=== PATIENT | female | born 1935 | race Caucasian/White ===

== ENCOUNTER 2017-08-14 11:22 | Inpatient (IN) | payer MEDICARE, BC ==
[2017-08-14] VITALS (12 sets, daily range): BP systolic 104–150; BP diastolic 39–90
[~2017-08-14] VITALS: Ht 167.6 cm; Wt 108.9 kg
--- NOTE | 2017-08-14 11:45 | NUR ---
IV ACCESS STARTED. BLOOD DRAWN FOR LABS.
--- NOTE | 2017-08-14 11:45 | NUR ---
BIB RA, FOUND AT HOME WEAK AND SOB. NOTED LETHARGIC. NONREBREATHER MASK UPHOLSTERER HELPER. IV ACCESS NOTED INFILTRATED UPHOLSTERER HELPER. 102.4 RECTAL TEMP. SEEN BY MD FOR EVAL. SAFETY AND COMFORT MEASURES PROVIDED. WILL MONITOR.
[2017-08-14 11:50] LABS: BASOPHILS % (AUTO) 0.4 % (0.0-2.0); HEMATOCRIT 37 % (33-45); HEMOGLOBIN 11.5 g/dL (11.5-14.8); LYMPHOCYTES # (AUTO) 0.8 /CMM (0.8-4.8); LYMPHOCYTES % (AUTO) 11.5 % (20.0-44.0); MEAN CORPUSCULAR HEMOGLOBIN 28 PG (26.0-33.0); MEAN CORPUSCULAR HGB CONC 31 g/dl (31.0-36.0); MEAN CORPUSCULAR VOLUME 90 fL (82-100); MONOCYTES # (AUTO) 0.5 /CMM (0.1-1.30); MONOCYTES % (AUTO) 8.2 % (2.0-12.0); NEUTROPHILS # (AUTO) 5.3 /CMM (1.8-8.9); NEUTROPHILS % (AUTO) 79.9 % (43.0-81.0); PLATELET COUNT (AUTO) 197 /CMM (150-450); RDW COEFFICIENT OF VARIATION 24.4 (11.5-15.0); RED BLOOD CELL COUNT(AUTO) 4.16 MIL/uL (4.0-5.2); WHITE BLOOD COUNT (AUTO) 6.6 K/uL (4.3-11.0)
--- NOTE | 2017-08-14 11:52 | NUR ---
NORRIS AT BS.
[2017-08-14 11:59] LABS: CALCIUM, SERUM 8.8 mg/dL (8.5-10.1); CARBON DIOXIDE 26 mmol/L (21-32); CHLORIDE 111 mmol/L (98-107); CREATININE 2.3 mg/dL (0.6-1.3); GLUCOSE 177 mg/dL (74-106); POTASSIUM 4.9 mmol/L (3.5-5.1); SODIUM SERUM 146 mmol/L (136-145); UREA NITROGEN, BLOOD 43 mg/dL (7-18)
[2017-08-14 12:02] LABS: INR 1.14 (0.87-1.13); PROTHROMBIN TIME 11.9 SECS (9.5-12.7)
[2017-08-14 12:05] LABS: ALANINE AMINOTRANSFERASE 43 U/L (12-78); ALBUMIN 3.1 g/dL (3.4-5.0); ALKALINE PHOSPHATASE 73 U/L (46-116); ASPARTATE AMINOTRANSFERASE 50 U/L (15-37); BILIRUBIN,DIRECT 0.3 mg/dL (0.0-0.2); BILIRUBIN,TOTAL 0.8 mg/dL (0.2-1.0); TOTAL PROTEIN, SERUM 7.3 g/dL (6.4-8.2)
[2017-08-14 12:08] LABS: TROPONIN I 1.217 ng/mL (0.00-0.056)
[2017-08-14 12:20] LABS: APPEARANCE,URINE Cloudy (CLEAR); BILIRUBIN,URINE SMALL (NEGATIVE); BLOOD, URINE Trace-intact Ery/uL (NEGATIVE); COLOR,URINE Yellow (YELLOW); KETONES,URINE Negative (NEGATIVE); LEUKOCYTE ESTERASE ,URINE Trace (NEGATIVE); NITRITE, URINE Negative (NEGATIVE); PROTEIN,URINE >=300 mg/dl (NEGATIVE); UGLUCOSE Negative (NEGATIVE)
[2017-08-14 12:26] LABS: BACTERIA,URINE Many /HPF (None Seen)
[2017-08-14 12:27] LABS: SQUAMOUS EPITHELIAL CELL,UR Few /HPF (None Seen)
[2017-08-14] MEDS ORDERED: ASPIRIN 325 MG TABLET PO ONE (12:30)
[2017-08-14] MEDS ORDERED: EZET10TA PO (12:37)
[2017-08-14] MEDS ORDERED: ASPIRIN 325 MG TABLET ONE (12:37)
[2017-08-14] MEDS ORDERED: PRED1TAB PO (12:37)
[2017-08-14] MEDS ORDERED: HYDR25TA4 PO (12:37)
[2017-08-14] MEDS ORDERED: LINA5TAB PO (12:37)
[2017-08-14] MEDS ORDERED: SIMV40TA5 PO (12:37)
[2017-08-14] MEDS ORDERED: LOSA25TA13 PO (12:37)
[2017-08-14] MEDS ORDERED: METO25TA3 PO (12:37)
[2017-08-14] MEDS ORDERED: PANT40TA2 PO (12:37)
[2017-08-14] MEDS ORDERED: INSU10VI4 SQ (12:40)
[2017-08-14] MEDS ORDERED: HYDR-4075 PO (12:40)
[2017-08-14] MEDS ORDERED: BLOO-668 IN (12:41)
[2017-08-14] MEDS ORDERED: PIPERACILLIN /TAZOBACTAM 3.375 G in IV D5W 50 ML IV ONE (13:00)
--- NOTE | 2017-08-14 13:51 | NUR ---
PT'S SISTER- CHARLEE ZAPATA CDELLPHONE , HOME .
[2017-08-14] MEDS ORDERED: FURO-144 PO (13:52)
[2017-08-14] MEDS ORDERED: ETHA25TA4 PO (13:52)
[2017-08-14] MEDS ORDERED: IV NS 0.9% 1,000 ML IV PRN (13:57)
[2017-08-14] MEDS ORDERED: MAGNESIUM HYDROXIDE 30 ML UDC PO PRN (14:00)
[2017-08-14] MEDS ORDERED: ONDANSETRON HCL/PF 4 MG/2 ML VIAL IVP PRN (14:00)
[2017-08-14] MEDS ORDERED: HYDROCODONE/APAP 10/325MG 1 EA TABLET PO PRN (14:00)
[2017-08-14] MEDS ORDERED: MAG HYDROX/AL HYDROX/SIMETH 30 ML UDC PO PRN (14:00)
[2017-08-14] MEDS ORDERED: ACETAMINOPHEN 650 MG/SUPP.RECT RC ONE (14:00)
[2017-08-14] MEDS ORDERED: TEMAZEPAM 15 MG CAPSULE PO PRN (14:00)
[2017-08-14] MEDS ORDERED: HYDROCODONE/APAP 5/325MG 1 EACH TABLET PO PRN (14:00)
[2017-08-14] MEDS ORDERED: ACETAMINOPHEN 325 MG TABLET PO PRN (14:00)
[2017-08-14] MEDS ORDERED: CLON0.1T PO (14:01)
--- NOTE | 2017-08-14 14:14 | NUR ---
REPORT GIVEN TO ARJUN ENCARNACION FOR 1CU ROOM 257.
--- NOTE | 2017-08-14 14:14 | NUR ---
SECOND IV ACCESS STARTED PER ICU REQUEST.
--- NOTE | 2017-08-14 14:35 | NUR ---
ICU/RN PT ADMITTED FROM ER.ON SIMPLE MASK 6L.SAT O2-92%.V/S STABLE,AFEBRILE.NO PAIN REPORTED AT THIS TIME.PT HAS PERIFERAL IV -HL.REFUSED TO INSERT F/C OR PUT DIAPER ON. PT IS OBESE.HAS MULTIPLY BRUISES,REDNESS ,RASHES AND EXCORIATIONS ALL OVER THE BODY,DUE TO AUTOIMMUNE SKIN DISORDER-BULLOUS PEMPHIGOID.REDNESS ON ELVIA AREA NOTED.CONTINUE MONITORING.
--- NOTE | 2017-08-14 15:00 | NUR ---
ICU/RN PT PLACED ON N/C .UNABLE TO TOLERATE,PLACED BACK ON SIMPLE MASK.
[2017-08-14] MEDS ORDERED: DEXTROSE 50%-WATER 50 ML DISP.SYRIN IV PRN ×2 (15:30→16:00)
[2017-08-14] MEDS ORDERED: FUROSEMIDE 40 MG/4 ML VIAL IV ONE (15:30)
[2017-08-14] MEDS ORDERED: INSULIN REGULAR, HUMAN 100 UNIT/ML 3 ML VIAL SQ PRN (16:00)
[2017-08-14] MEDS ORDERED: *INSULIN REGULAR(HUMULIN R)HUM 100 UNIT/ML VIAL SQ PRN (16:00)
[2017-08-14] MEDS: BLOOD SUGAR DIAGNOSTIC 1 EACH STRIP VI SCH ×4 (16:25→22:00)
[2017-08-14] MEDS: PIPERACILLIN /TAZOBACTAM 2.25 G in IV D5W 50 ML IV SCH (17:03)
--- NOTE | 2017-08-14 17:15 | NUR ---
ICU/RN DUE MEDS ARE GIVEN ORDERED.BS-139.PT IS ON THE MASK ,SAT O2-99%.VS STABLE,AFEBRILE.NO PAIN REPORTED TO THIS TIME.
--- NOTE | 2017-08-14 19:45 | NUR ---
manager agricultural notes received pts and report from sami johnston , pts in bed awake alert and responsive , no sob no distress noted , on tele sr -83 on 6liters via mask sating 96 %, v/s stable afebrile , all needs attended too ,call light within reach , all due meds given as ordered , pts on l ua midline r hand G20 , r wrist g# 20 all intact and patent . will continue to monitor pts.
[2017-08-14] MEDS: HEPARIN SODIUM, PORCINE 5000 UNITS/1 ML VIAL SQ SCH (21:13)
[2017-08-14] MEDS: *INSULIN REGULAR(HUMULIN R)HUM 100 UNIT/ML VIAL SQ PRN (21:18)
--- NOTE | 2017-08-14 21:31 | NUR ---
auricular detoxification specialist notes blood sugar for 10pm is 99mg/dl =no coverage given per sliding scale, pts on po diet , will check blood sugar again in am
[2017-08-15] VITALS (23 sets, daily range): BP systolic 100–160; BP diastolic 52–105
[2017-08-15] MEDS: PIPERACILLIN /TAZOBACTAM 2.25 G in IV D5W 50 ML IV SCH ×5 (00:27→23:30)
[2017-08-15 05:00] LABS: BASOPHILS % (AUTO) 0.1 % (0.0-2.0); HEMATOCRIT 34 % (33-45); HEMOGLOBIN 10.5 g/dL (11.5-14.8); LYMPHOCYTES # (AUTO) 0.6 /CMM (0.8-4.8); MEAN CORPUSCULAR HEMOGLOBIN 28 PG (26.0-33.0); MEAN CORPUSCULAR HGB CONC 31 g/dl (31.0-36.0); MEAN CORPUSCULAR VOLUME 89 fL (82-100); MONOCYTES # (AUTO) 0.8 /CMM (0.1-1.30); MONOCYTES % (AUTO) 9.5 % (2.0-12.0); NEUTROPHILS # (AUTO) 6.7 /CMM (1.8-8.9); NEUTROPHILS % (AUTO) 83.4 % (43.0-81.0); PLATELET COUNT (AUTO) 118 /CMM (150-450); RDW COEFFICIENT OF VARIATION 26.9 (11.5-15.0); RED BLOOD CELL COUNT(AUTO) 3.77 MIL/uL (4.0-5.2)
[2017-08-15 05:36] LABS: CALCIUM, SERUM 8.3 mg/dL (8.5-10.1); CARBON DIOXIDE 26 mmol/L (21-32); CHLORIDE 112 mmol/L (98-107); CREATININE 2.7 mg/dL (0.6-1.3); GLUCOSE 146 mg/dL (74-106); MAGNESIUM 2.1 mg/dL (1.8-2.4); PHOSPHORUS 5.7 mg/dL (2.5-4.9); POTASSIUM 4.9 mmol/L (3.5-5.1); SODIUM SERUM 147 mmol/L (136-145); UREA NITROGEN, BLOOD 54 mg/dL (7-18)
[2017-08-15 05:47] LABS: CHOLESTEROL 53 mg/dL (<200); HDL CHOLESTEROL 29 mg/dL (40-60); LDL 19 mg/dL (0-99); THYROID STIMULATING HORMONE 2.042 uIU/mL (0.358-3.74); TRIGLYCERIDES 59 mg/dL (30-150)
--- NOTE | 2017-08-15 06:47 | NUR ---
manager agricultural notes pts on bed remains on mask at 6 liters of 02 sating 92% vs stable afebrile , no sob no distress no c/o of pain . hob elevated for aspiration precaution , will endorse to rn day shift for continuity of care . paged dr strange for abnormal labs , awaiting for reply
--- NOTE | 2017-08-15 07:00 | NUR ---
BAGGAGE AND MAIL AGENT- INITIAL NOTE RECEIVED PT A/O X2-3. PT ON 6L SIMPLE MASK, NO SOB OR DISTRESS NOTED. BEDSIDE MONITOR REVEALS SINUS RHYTHM. NATALEE MIDLINE RUNNING NS @ TKO. SAFETY MEASURES TAKEN: BED LOCKED AND IN LOW POSITION, SIDE RAILS UP X2, BED ALARM ON AND CALL LIGHT WITHIN REACH, WILL CONTINUE TO MONITOR.
[2017-08-15] MEDS: BLOOD SUGAR DIAGNOSTIC 1 EACH STRIP VI SCH ×5 (07:30→22:40)
[2017-08-15] MEDS: FUROSEMIDE 100 MG/10 ML VIAL IV SCH ×3 (08:42→16:14)
[2017-08-15] MEDS: FAMOTIDINE (20 MG) 20 MG TABLET PO SCH (08:43)
[2017-08-15] MEDS: ASPIRIN 325 MG TABLET PO SCH (08:43)
[2017-08-15] MEDS: HEPARIN SODIUM, PORCINE 5000 UNITS/1 ML VIAL SQ SCH ×2 (08:44→21:39)
--- NOTE | 2017-08-15 09:30 | NUR ---
JOURNEYMAN MILLWRIGHT- ABGS DONE. PT INCREASED TO 12L ON SIMPLE MASK BY RT DUE TO PO2 OF 69.3. WILL CONTINUE TO MONITOR.
[2017-08-15 09:31] LABS: ABG BASE EXCESS -0.4 mmol/L; ABG OXYGEN SATURATION 91.6 % (92.0-98.5); ABG PCO2 46.6 mmHg (35.0-45.0); ABG PH 7.355 (7.350-7.450); ABG PO2 69.3 mmHg (75.0-100.0); AaDO2 234.8 mmHg; COHb 0.2 % (0.5-1.5); O2Hb 90.5 % (94.0-97.0); SITE, ABG Right Radial; VENT MODE, BG SIMPLE MASK
--- NOTE | 2017-08-15 11:00 | NUR ---
SPRING FORGER- PT ENDORSED TO LORI ENCARNACION FOR CONTINUITY OF CARE. PT IN NO ACUTE DISTRESS AT THIS TIME.
[2017-08-15] MEDS: FUROSEMIDE 40 MG/4 ML VIAL IV SCH ×2 (13:30→16:12)
--- NOTE | 2017-08-15 14:19 | NUR ---
PT NOTED TO BE IN AFIB/AFLUTTER CONTROLLED, RENEWABLE ENERGY CONSULTANT CHRISTINA BLISS NOTIFIED, NEW ORDERS RECEIVED WILL CARRY OUT
[2017-08-15 15:30] LABS: CALCIUM, SERUM 7.9 mg/dL (8.5-10.1); CARBON DIOXIDE 29 mmol/L (21-32); CHLORIDE 107 mmol/L (98-107); GLUCOSE 200 mg/dL (74-106); MAGNESIUM 2.1 mg/dL (1.8-2.4); POTASSIUM 4.5 mmol/L (3.5-5.1); SODIUM SERUM 144 mmol/L (136-145); UREA NITROGEN, BLOOD 54 mg/dL (7-18)
--- NOTE | 2017-08-15 16:30 | NUR ---
DR STILL NOTIFIED OF AFIB/AFLUTTER CONTROLLED, BP WNL, PT ASYMPTOMATIC. K AND MAG WNL, NO NEW ORDERS AT THIS TIME
--- NOTE | 2017-08-15 21:05 | NUR ---
FOOD SERVICE REPRESENTATIVE DF PT INCONTINENT OF LARGE AMOUNT OF URINE. PT REFUSING EARLY CATHETER INSERTION. PT RECEIVING LASIX IVP. CHRISTINA BLISS NP AND SEVERAL RN DISCUSSED IMPORTANCE OF EARLY CATHETER TO PROTECT PT,S SKIN AND MGMT OF INCONTINENCE. PT HAS REDNESS NOTED TO RIGHT BUTTOCK. I EXPLAINED TO PT THAT NOT HAVING A EARLY COULD BE BAD FOR HER SKIN. PT REFUSES EARLY INSERTION DUE TO THE FACT SHE HAD A BAD EXPERIENCE DURING A HOSPITALIZATION. PT A/OX2, VSS,NAD NOTED.
[2017-08-16] VITALS (24 sets, daily range): BP systolic 104–162; BP diastolic 40–106
[2017-08-16 04:59] LABS: BASOPHILS % (AUTO) 0.5 % (0.0-2.0); EOSINOPHILS % (AUTO) 0.8 % (0.0-6.0); HEMATOCRIT 35 % (33-45); HEMOGLOBIN 10.9 g/dL (11.5-14.8); LYMPHOCYTES # (AUTO) 1.1 /CMM (0.8-4.8); LYMPHOCYTES % (AUTO) 19.9 % (20.0-44.0); MEAN CORPUSCULAR HEMOGLOBIN 28 PG (26.0-33.0); MEAN CORPUSCULAR HGB CONC 32 g/dl (31.0-36.0); MEAN CORPUSCULAR VOLUME 89 fL (82-100); MONOCYTES # (AUTO) 0.8 /CMM (0.1-1.30); MONOCYTES % (AUTO) 13.7 % (2.0-12.0); NEUTROPHILS # (AUTO) 3.6 /CMM (1.8-8.9); NEUTROPHILS % (AUTO) 65.1 % (43.0-81.0); PLATELET COUNT (AUTO) 134 /CMM (150-450); RED BLOOD CELL COUNT(AUTO) 3.88 MIL/uL (4.0-5.2); WHITE BLOOD COUNT (AUTO) 5.5 K/uL (4.3-11.0)
[2017-08-16 05:16] LABS: CALCIUM, SERUM 8.1 mg/dL (8.5-10.1); CARBON DIOXIDE 31 mmol/L (21-32); CHLORIDE 107 mmol/L (98-107); CREATININE 2.8 mg/dL (0.6-1.3); GLUCOSE 141 mg/dL (74-106); MAGNESIUM 1.9 mg/dL (1.8-2.4); POTASSIUM 4.3 mmol/L (3.5-5.1); SODIUM SERUM 143 mmol/L (136-145); UREA NITROGEN, BLOOD 57 mg/dL (7-18)
[2017-08-16] MEDS: PIPERACILLIN /TAZOBACTAM 2.25 G in IV D5W 50 ML IV SCH ×3 (06:22→17:51)
--- NOTE | 2017-08-16 08:00 | NUR ---
ICU/RN INITIAL NOTES,AM RECEIVED REPORT FROM NIGHT NURSE. PT ALERT, AWAKE, ORIENTED. FOLLOWS COMMANDS. PT ON NASAL CANULA, 6 LITERS, TOLERATING WELL. NO ACUTE RESPIRATORY DISTRESS NOTED AT THIS TIME. PT ON TELE, SINUS RHYTHM. ON CARDIAC DIET. MIDLINE AND PIV PATENT AND INTACT, NO S/S OF INFECTION OR INFILTRATION NOTED. PT TURNED AND REPOSITIONED, CLEAN AND DRY. ALL NEEDS WILL BE MET, SAFETY MEASURES TAKEN, BED IN LOW POSITION, SIDE RAILS UP, CALL LIGHT WITHIN REACH. WILL CONTINUE CARE.
[2017-08-16] MEDS: FAMOTIDINE (20 MG) 20 MG TABLET PO SCH (08:08)
[2017-08-16] MEDS: BLOOD SUGAR DIAGNOSTIC 1 EACH STRIP VI SCH ×4 (08:08→21:15)
[2017-08-16] MEDS: FUROSEMIDE 40 MG/4 ML VIAL IV SCH (08:08)
[2017-08-16] MEDS: ASPIRIN 325 MG TABLET PO SCH (08:08)
[2017-08-16] MEDS: Z GUARD REMEDY 2 OZ OINT TP SCH (08:09)
[2017-08-16] MEDS: HEPARIN SODIUM, PORCINE 5000 UNITS/1 ML VIAL SQ SCH ×2 (08:10→20:25)
[2017-08-16] MEDS: INSULIN REGULAR, HUMAN 100 UNIT/ML 3 ML VIAL SQ PRN ×2 (08:11→11:45)
--- NOTE | 2017-08-16 09:00 | NUR ---
ICU/RN: DAILY WEIGHTS NOT DONE, PER THIS MUST BE DONE DAILY AND PER PROTOCOL. PT TAKEN OFF BED AND ZEROED, SCALE DID NOT WORK, WILL CHANGE BED TO A DIFFERENT BED.
[2017-08-16] MEDS: FUROSEMIDE 100 MG/10 ML VIAL IV SCH ×3 (11:29→17:51)
[2017-08-16] MEDS: OSELTAMIVIR PHOSPHATE 75 MG CAPSULE PO SCH (11:32)
--- NOTE | 2017-08-16 14:25 | NUR ---
WOUND CARE CONSULT: PT PRESENTS WITH MULTIPLE DISCOLORED AREAS TO ARMS, PRESENT ON ADMISSION. PT NOTED TO HAVE SMALL OPEN BLISTER TO RT BUTTOCK. 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. PT STATES THAT SHE IS REFUSING EARLY CATH. PT INCONTINENT. CURRENT AMY SCORE IS 13. PT ON FIRST STEP MATTRESS. ALL SKIN PROTECTION MEASURES IN PLACE. RECOMMENDATIONS MADE FOR SKIN PROTECTION AND CARE. DISCUSSED WITH NURSING STAFF. WILL SEE PRN. BUCHANAN IN AGREEMENT WITH PLAN OF CARE. Addendum: 08/16/17 at 1428 by WILLIAM VILLARREAL WNDNU Amended: Links added.
--- NOTE | 2017-08-16 17:00 | NUR ---
ICU/RN: BED CHANGED, PT WEIGHED. WILL BE DONE DAILY AT 0600.
[2017-08-16] MEDS: predniSONE 20 MG TABLET PO SCH (17:52)
--- NOTE | 2017-08-16 18:34 | NUR ---
ICU/RN ENDING NOTES,AM REPORT WILL BE ENDORSED TO NIGHT NURSE FOR CONTINUATION OF CARE. PT AAOX4, FOLLOWS ALL COMMANDS. ON NASAL CANULA, NO ACUTE RESPIRATORY DISTRESS NOTED. PT SINUS ON TELE, VSS. PT BATHE, LINENS CHANGED, CLEAN AND DRY. PT TURNED AND REPOSITIONED. ALL NEEDS ATTENDED TO, SAFETY MEASURES TAKEN, BED IN LOW POSITION, SIDE RAILS UP, CALL LIGHT WITHIN REACH. WILL CONTINUE CARE.
--- NOTE | 2017-08-16 19:15 | NUR ---
RN NOTES RECEIVED PT AWAKE WATCHING TV ON BED NO ACUTE RESP DISTRESS. O2 6LPM VIA NC SATING 94%. AOX 4 VERBALIZED NEEDS. ISOLATION FOR INFLUENZA A STRICTLY OBSERVED. ISOLATION PRECAUTION MET. DENIES PAIN. TELE MONITOR REVEALS A- FIB HR 64 DENIES CHEST PAIN. IV SITE ON NATALEE MIDLINE INTACT AND PATENT WELL IV SITE ON RIGHT HAND G 20. NO INFILTRATION OR LEAK NOTED. PER PATIENT SHE WANTED TO GO TO THE COMMODE FOR BOWEL DUE TO LOOSE BOWEL THAT SHE HAD TODAY. DENIES BURNING SENSATION WHILE URINATING. INSTRUCTED TO USED CALL LIGHT FOR ASSISTANCE. KEPT PT CLEAN AND DRY. ALL NEEDS ATTENDED. WILL CONTINUE TO MONITOR.
--- NOTE | 2017-08-16 20:30 | NUR ---
RN NOTES CHANGES DIAPER PER PT REQUESTED DUE TO BOWEL AND BLADDER.
[2017-08-16] MEDS: *INSULIN REGULAR(HUMULIN R)HUM 100 UNIT/ML VIAL SQ PRN (21:19)
--- NOTE | 2017-08-16 22:30 | NUR ---
RN NOTES ASSISTED TO THE COMMODE. PT ABLE TO STAND AND TRANSFER FROM BED TO COMMODE NOTED SOB WHEN STANDING EDUCATED REGARDING SAFETY AND PROPER WAY TO MOVE HER SELF FOR TRANSFER. KEPT PT CLEAN AND DRY AND BACK TO BED
[2017-08-17] VITALS (20 sets, daily range): BP systolic 105–170; BP diastolic 51–95
[2017-08-17] MEDS: PIPERACILLIN /TAZOBACTAM 2.25 G in IV D5W 50 ML IV SCH ×4 (00:13→17:19)
--- NOTE | 2017-08-17 04:30 | NUR ---
RN NOTES PT YELLED FOR A NURSE. PT STATED " I WANNA GO TO THE COMMODE SO MY MOM WILL PICK ME UP TO GO HOME, MY SISTER IS COMING TODAY AND WILL TELL HER TO TELL THEM THAT I WANNA GO HOME." NOTED PT WITH EPISODE OF ON AND OFF AND WITH EPISODE OF CONFUSION AT TIMES. REALITY ORIENTATION RENDERED. PT REMAINED IN USUAL MENTAL STATUS A THIS TIME BED ALARMED KEPT ON FOR SAFETY AND ASSISTANCE. WILL CLOSELY MONITOR.
--- NOTE | 2017-08-17 05:10 | NUR ---
RN NOTES PT REFUSED TO HAVE CXR TODAY PER PATIENT "I JUST HAD CXR YESTERDAY, AND THEYRE BEEN DOING IT". RISK AND BENEFITS EXPLAINED PT IS AWARE , INEFFECTIVE.
[2017-08-17 05:15] LABS: ABG BASE EXCESS 4.7 mmol/L; ABG OXYGEN SATURATION 95.2 % (92.0-98.5); ABG PCO2 53.2 mmHg (35.0-45.0); ABG PH 7.384 (7.350-7.450); ABG PO2 82.6 mmHg (75.0-100.0); AaDO2 170.5 mmHg; MetHb 0.3 % (0.0-1.5); SITE, ABG Right Radial; VENT MODE, BG NASAL CANNULA
[2017-08-17 05:25] LABS: EOSINOPHILS % (AUTO) 0.2 % (0.0-6.0); HEMATOCRIT 40 % (33-45); HEMOGLOBIN 12.2 g/dL (11.5-14.8); LYMPHOCYTES # (AUTO) 0.7 /CMM (0.8-4.8); LYMPHOCYTES % (AUTO) 21.3 % (20.0-44.0); MEAN CORPUSCULAR HEMOGLOBIN 28 PG (26.0-33.0); MEAN CORPUSCULAR HGB CONC 31 g/dl (31.0-36.0); MEAN CORPUSCULAR VOLUME 89 fL (82-100); MONOCYTES # (AUTO) 0.2 /CMM (0.1-1.30); MONOCYTES % (AUTO) 5.1 % (2.0-12.0); NEUTROPHILS # (AUTO) 2.5 /CMM (1.8-8.9); NEUTROPHILS % (AUTO) 73.4 % (43.0-81.0); PLATELET COUNT (AUTO) 137 /CMM (150-450); RDW COEFFICIENT OF VARIATION 26.4 (11.5-15.0); RED BLOOD CELL COUNT(AUTO) 4.44 MIL/uL (4.0-5.2); WHITE BLOOD COUNT (AUTO) 3.4 K/uL (4.3-11.0)
[2017-08-17 05:44] LABS: ALANINE AMINOTRANSFERASE 48 U/L (12-78); ALBUMIN 2.6 g/dL (3.4-5.0); ALKALINE PHOSPHATASE 57 U/L (46-116); ASPARTATE AMINOTRANSFERASE 37 U/L (15-37); BILIRUBIN,TOTAL 0.5 mg/dL (0.2-1.0); CALCIUM, SERUM 8.4 mg/dL (8.5-10.1); CARBON DIOXIDE 32 mmol/L (21-32); CHLORIDE 103 mmol/L (98-107); CREATININE 2.8 mg/dL (0.6-1.3); GLUCOSE 312 mg/dL (74-106); MAGNESIUM 1.9 mg/dL (1.8-2.4); PHOSPHORUS 5.8 mg/dL (2.5-4.9); POTASSIUM 4.2 mmol/L (3.5-5.1); SODIUM SERUM 144 mmol/L (136-145); UREA NITROGEN, BLOOD 64 mg/dL (7-18)
--- NOTE | 2017-08-17 06:58 | NUR ---
RN NOTES PT ASLEEP AT THIS TIME. NO SIGNIFICANT CHANGES NOTED. AFEBRILE. TOLERATED O2 6LPM IA NC SATING >90%- 95%. INCONTINENT PROVIDED DUE TO EPISODE OF SOB WHEN STANDING. KEPT PT CLEAN AND COMFORTABLE IN BED. OFFLOADED EXT WITH PILLOWS. ENDORSED CONTINUITY OF CARE TO AM NURSE.
--- NOTE | 2017-08-17 08:00 | NUR ---
ICU/RN INITIAL NOTES,AM RECEIVED REPORT FROM NIGHT NURSE. PT ALERT, AWAKE, ORIENTED. FOLLOWS COMMANDS. PT ON NASAL CANULA, 6 LITERS, TOLERATING WELL. NO ACUTE RESPIRATORY DISTRESS NOTED AT THIS TIME. PT ON TELE, CONTROLLED ATRAIL FIB. ON CARDIAC DIET. MIDLINE AND PIV PATENT AND INTACT, NO S/S OF INFECTION OR INFILTRATION NOTED. PT TURNED AND REPOSITIONED, CLEAN AND DRY. ALL NEEDS WILL BE MET, SAFETY MEASURES TAKEN, BED IN LOW POSITION, SIDE RAILS UP, CALL LIGHT WITHIN REACH. WILL CONTINUE CARE. POSSIBLE DOWNGRADE THIS AFTERNOON.
[2017-08-17] MEDS: BLOOD SUGAR DIAGNOSTIC 1 EACH STRIP VI SCH ×4 (08:19→21:54)
[2017-08-17] MEDS: ASPIRIN 325 MG TABLET PO SCH (08:24)
[2017-08-17] MEDS: OSELTAMIVIR PHOSPHATE 75 MG CAPSULE PO SCH (08:25)
[2017-08-17] MEDS: HEPARIN SODIUM, PORCINE 5000 UNITS/1 ML VIAL SQ SCH ×2 (08:25→22:01)
[2017-08-17] MEDS: FAMOTIDINE (20 MG) 20 MG TABLET PO SCH (08:25)
[2017-08-17] MEDS: predniSONE 20 MG TABLET PO SCH (08:25)
[2017-08-17] MEDS: Z GUARD REMEDY 2 OZ OINT TP SCH (08:26)
[2017-08-17] MEDS: INSULIN REGULAR, HUMAN 100 UNIT/ML 3 ML VIAL SQ PRN ×3 (08:32→17:16)
[2017-08-17] MEDS: MUPIROCIN OINT 2% 22 GM TUBE SCH ×2 (08:46→22:02)
[2017-08-17] MEDS: hydrALAZINE HCL 50 MG TABLET PO SCH ×3 (11:00→17:21)
[2017-08-17] MEDS: NITROGLYCERIN 30 GM TUBE TP SCH ×2 (11:00→22:01)
--- NOTE | 2017-08-17 16:30 | NUR ---
ICU/RN: PT SEEN BY PHYSICAL THERAPY. PATIENT OUT OF BED, WALKED 10 STEPS WITH WALKER, SITTING IN CHAIR. NO DISTRESS, TOLERATING WELL. WILL CONTINUE TO MONITOR AND ASSESS.
--- NOTE | 2017-08-17 18:58 | NUR ---
ICU/RN: ORDERS TO TRANSFER PT TO TELE. PT TRANSFERRED TO TELE 110-1. PT TRANSFERRED VIA ACLS GUIDELINES. ON 6LITERS NASAL CANULA, NO ACUTE DISTRESS NOTED. PT CONTROLLED A.FIB ON TELE. ALL BELONGINGS BROUGHT WITH PT. ALL NEEDS ATTENDED TO, SAFETY MEASURES TAKEN, BED IN LOW POSITION, SIDE RAILS UP, CALL LIGHT WITHIN REACH. BED BATH GIVEN, LINENS CHANGED. WILL ENDORSE TO MRI SUPERVISOR FOR MARIA M. Addendum: 08/17/17 at 1919 by SARMAD ROE RN ORDERS TO TRANSFER TO [facility]/TD.
--- NOTE | 2017-08-17 19:32 | NUR ---
RN OPENING NOTE RECEIVED PATIENT IN THE BED ALERT, ORIENTED, ABLE TO VERBALIZED NEEDS, PATIENT HAS LEFT UPPER MIDLINE, INTACT, LEFT HAND PERIPHERAL 20 GAUGE INTACT. NO DISTRESS NOTED, PATIENT DENIES PAIN OR DISCOMFORT. ADMISSION DX: UTI, RESPIRATORY FAILURE, NSTEMI, UTI, PNEUMONIA, ON A CARDIAC DIET, ON 6 L/MIN VIA NASAL CANULA, CALL LIGHT WITHIN REACH, BED IN THE LOW POSITION, SIDE RAILS X 2, WILL CONTINUE TO MONITOR
[2017-08-17] MEDS: *INSULIN REGULAR(HUMULIN R)HUM 100 UNIT/ML VIAL SQ PRN (21:58)
[2017-08-18] VITALS: BP 123/52
--- NOTE | 2017-08-18 | NUR ---
RN NOTE PATIENT REMOVED IV SALINE LOCK FROM THE RIGHT HAND
[2017-08-18] MEDS: PIPERACILLIN /TAZOBACTAM 2.25 G in IV D5W 50 ML IV SCH ×2 (00:32→05:43)
[2017-08-18 04:00] VITALS: BP 143/67
--- NOTE | 2017-08-18 06:00 | NUR ---
RN NOTE NOTIFIED AM NURSE ABOUT AM LAB, BUN , CREATININE
[2017-08-18] MEDS: BLOOD SUGAR DIAGNOSTIC 1 EACH STRIP VI SCH ×4 (06:21→22:05)
[2017-08-18] MEDS: INSULIN REGULAR, HUMAN 100 UNIT/ML 3 ML VIAL SQ PRN ×3 (06:29→17:24)
--- NOTE | 2017-08-18 06:53 | NUR ---
RN CLOSING NOTE PT IS AWAKE AT THIS TIME. NO SIGNIFICANT CHANGES NOTED. NO TEMPERATURE NOTED. TOLERATED O2 6LPM IA NC SATING 94-97%, USED BEDSIDE COMMODE. KEPT PT CLEAN AND COMFORTABLE IN BED. OFFLOADED EXT WITH PILLOWS. NO DISTRESS DURING THE SHIFT ENDORSED CONTINUITY OF CARE TO AM NURSE
[2017-08-18 06:57] LABS: BASOPHILS % (AUTO) 0.1 % (0.0-2.0); EOSINOPHILS % (AUTO) 0.6 % (0.0-6.0); HEMATOCRIT 40 % (33-45); HEMOGLOBIN 12.4 g/dL (11.5-14.8); LYMPHOCYTES # (AUTO) 1.2 /CMM (0.8-4.8); LYMPHOCYTES % (AUTO) 24.4 % (20.0-44.0); MEAN CORPUSCULAR HEMOGLOBIN 28 PG (26.0-33.0); MEAN CORPUSCULAR HGB CONC 32 g/dl (31.0-36.0); MEAN CORPUSCULAR VOLUME 89 fL (82-100); MONOCYTES # (AUTO) 0.7 /CMM (0.1-1.30); MONOCYTES % (AUTO) 14.2 % (2.0-12.0); NEUTROPHILS # (AUTO) 3.1 /CMM (1.8-8.9); NEUTROPHILS % (AUTO) 60.7 % (43.0-81.0); PLATELET COUNT (AUTO) 140 /CMM (150-450); RDW COEFFICIENT OF VARIATION 26.3 (11.5-15.0); RED BLOOD CELL COUNT(AUTO) 4.46 MIL/uL (4.0-5.2)
[2017-08-18 07:03] LABS: ALANINE AMINOTRANSFERASE 38 U/L (12-78); ALBUMIN 2.6 g/dL (3.4-5.0); ALKALINE PHOSPHATASE 49 U/L (46-116); ASPARTATE AMINOTRANSFERASE 26 U/L (15-37); BILIRUBIN,TOTAL 0.5 mg/dL (0.2-1.0); CALCIUM, SERUM 8.8 mg/dL (8.5-10.1); CARBON DIOXIDE 33 mmol/L (21-32); CHLORIDE 104 mmol/L (98-107); CREATININE 2.8 mg/dL (0.6-1.3); GLUCOSE 151 mg/dL (74-106); MAGNESIUM 2.1 mg/dL (1.8-2.4); PHOSPHORUS 4.4 mg/dL (2.5-4.9); SODIUM SERUM 145 mmol/L (136-145)
--- NOTE | 2017-08-18 07:10 | NUR ---
RN INITIAL NOTES: REC'D PT ON BED, NOT IN ANY DISTRESS, A/O X 3, DENIES ANY PAIN AND DISCOMFORT AT THIS TIME. ON NC AT 5LPM, NO SOB. ON TELEMONITOR, JESSIKA. HAS NATALEE MIDLINE, SL, FLUSHED PATENT & INTACT W/ NO S/SX OF INFECTION/INFILTRATION NOTED. PROVIDED COMFORT & SAFETY MEASURES. BED KEPT LOW & IN LOCKED POS. CALL LIGHT PLACED W/IN REACH. WILL CONTINUE TO MONITOR/ ATTEND PT NEEDS.
[2017-08-18 07:19] LABS: UREA NITROGEN, BLOOD 80 mg/dL (7-18)
[2017-08-18 08:00] VITALS: BP_SYST 132; BP_SYST 138; BP_DIAS 72
[2017-08-18] MEDS: ASPIRIN 325 MG TABLET PO SCH (08:42)
[2017-08-18] MEDS: FAMOTIDINE (20 MG) 20 MG TABLET PO SCH (08:42)
[2017-08-18] MEDS: hydrALAZINE HCL 50 MG TABLET PO SCH ×3 (08:42→16:22)
[2017-08-18] MEDS: Z GUARD REMEDY 2 OZ OINT TP SCH (08:42)
[2017-08-18] MEDS: OSELTAMIVIR PHOSPHATE 75 MG CAPSULE PO SCH (08:42)
[2017-08-18] MEDS: predniSONE 20 MG TABLET PO SCH (08:42)
[2017-08-18] MEDS: HEPARIN SODIUM, PORCINE 5000 UNITS/1 ML VIAL SQ SCH ×2 (08:54→21:38)
[2017-08-18] MEDS: NITROGLYCERIN 30 GM TUBE TP SCH ×2 (08:55→21:41)
[2017-08-18] MEDS: MUPIROCIN OINT 2% 22 GM TUBE SCH ×2 (08:55→21:41)
[2017-08-18 12:00] VITALS: BP 111/61
--- NOTE | 2017-08-18 12:30 | NUR ---
RN NOTES: INSTRUCTED FAMILY ABOUT CONTACT ISOLATION PRECAUTION W/ VERBALIZATION OF UNDERSTANDING.
--- NOTE | 2017-08-18 12:43 | NUR ---
RN NOTES: FAMILY WAS ABLE TO SPEAK WITH MELANIE BACK RE: DCP.
[2017-08-18] MEDS: MEROPENEM 1 G in IV NS 0.9% 100 ML IV SCH ×2 (12:57→23:38)
--- NOTE | 2017-08-18 13:15 | NUR ---
RN NOTES: PT SEEN & EXAMINED BY ASTER VASQUEZ. PT FOR DC TOMORROW PER DISCUSSION.
[2017-08-18 16:00] VITALS: BP 128/58
--- NOTE | 2017-08-18 17:56 | NUR ---
RN NOTES: PER PHARMACY, MED RECON NOT DONE. CLARIFIED W/ CHRISTINA MANAGER BIOLOGICS. STATED TO JUST CONTINUE CURRENT MEDICATIONS. PT FOR DC NEIL. ALSO REFERRED PT FOR COUGHING W/ ORDERS TO START ALBUTEROL 2.5 MG Q4H PRN VIA NEB. RT MADE AWARE.
[2017-08-18] MEDS ORDERED: ALBUTEROL FS 2.5 MG/0.5 ML VIAL.NEB NEB PRN (18:00)
--- NOTE | 2017-08-18 18:25 | NUR ---
RT CALLED FOR PRN TREATMENT. UPON ARRIVAL PATIENT STATES THAT SHE FEELS FINE AND THAT HER PRIMARY PROBLEM IS COUGHING. SHE DOES NOT REPORT SOB. DIMINISHED BS BILATERALLY. NO INDICATION FOR ALBUTEROL AT THIS TIME AND PATIENT STATES THAT SHE WANTS SOMETHING FOR HER COUGH. NURSE AWARE.
--- NOTE | 2017-08-18 18:36 | NUR ---
RN CLOSING NOTES: NO ACUTE CHANGES NOTED W/IN SHIFT. PT TOLERATED NC AT 2-3LPM. PT W/ OCCASIONAL COUGH, GRINDING WHEEL DRESSER IS AWARE. ON TELEMONITOR, STILL A.FLUTTER. NATALEE MIDLINE, SL, KEPT PATENT & INTACT W/ NO S/SX OF INFECTION/INFILTRATION NOTED. PT ABLE TO PARTICIPATE W/ PT, ABLE TO AMBULATE W/ FWW AT SUPERVISION LEVEL. KEPT WELL RESTED. NEEDS ATTENDED. BED KEPT LOW & IN LOCKED POS. CALL LIGHT PLACED W/IN REACH. WILL ENDORSE TO PM RN FOR MARIA M.
--- NOTE | 2017-08-18 19:30 | NUR ---
Received patient in the bed.No unusual signs or symptoms observed or reported,no signs of discomfort or distress,resting quietly.
[2017-08-18 20:00] VITALS: BP 132/51
[2017-08-18] MEDS: *INSULIN REGULAR(HUMULIN R)HUM 100 UNIT/ML VIAL SQ PRN (22:03)
[2017-08-19] VITALS: BP 116/55
--- NOTE | 2017-08-19 00:45 | NUR ---
CONCIERGE MANAGER: RECEIVED PT FROM FOREPART RASPER ROGER, A/O X 3. ON 4L 02 VIA NC WT NO ACUTE DISTRESS. NO C/O PAIN. A. FLUTTER/A. FIB ON TELE MONITOR. AFEBRILE. NOTED WT OCCASIONAL PRODUCTIVE COUGHING WT MINIMAL WHITE THIN SECRETIONS. HOB ON 45 DEGREES AND OFFERED WATER TO DRINK WT GOOD EFFECT. MAGDA MIDLINE INTACT INFUSING NS TKO WT NO S/S OF INFILTRATION. ABLE TO AMBULATE AROUND ROOM AND SIT ON COMMODE. SAFETY PRECAUTION NOTED AT ALL TIMES. CALL LIGHT WITHIN EASY REACH. WILL CONTINUE TO MONITOR.
[2017-08-19 04:00] VITALS: BP 139/53
--- NOTE | 2017-08-19 06:30 | NUR ---
FURNITURE SERVICER: NO SIGNIFICANT MARIA M DURING THE SHIFT. NO ACUTE DISTRESS, NO C/O PAIN. VS WITHIN PT's BASELINE. SAFETY PRECAUTION NOTED AT ALL TIMES.
--- NOTE | 2017-08-19 07:10 | NUR ---
RN INITIAL NOTES: REC'D PT ON BED, NOT IN ANY DISTRESS, A/O X 3, DENIES ANY PAIN AND DISCOMFORT AT THIS TIME. ON NC AT 3LPM, NO SOB. ON TELEMONITOR, JESSIKA. HAS NATALEE MIDLINE, SL, FLUSHED PATENT & INTACT W/ NO S/SX OF INFECTION/INFILTRATION NOTED. PROVIDED COMFORT & SAFETY MEASURES. BED KEPT LOW & IN LOCKED POS. CALL LIGHT PLACED W/IN REACH. WILL CONTINUE TO MONITOR/ ATTEND PT NEEDS.
[2017-08-19 07:22] LABS: BASOPHILS % (AUTO) 0.1 % (0.0-2.0); EOSINOPHILS % (AUTO) 0.6 % (0.0-6.0); HEMATOCRIT 39 % (33-45); HEMOGLOBIN 12.2 g/dL (11.5-14.8); LYMPHOCYTES # (AUTO) 1.4 /CMM (0.8-4.8); LYMPHOCYTES % (AUTO) 24.6 % (20.0-44.0); MEAN CORPUSCULAR HEMOGLOBIN 28 PG (26.0-33.0); MEAN CORPUSCULAR HGB CONC 32 g/dl (31.0-36.0); MEAN CORPUSCULAR VOLUME 89 fL (82-100); MONOCYTES # (AUTO) 0.8 /CMM (0.1-1.30); MONOCYTES % (AUTO) 13.7 % (2.0-12.0); NEUTROPHILS # (AUTO) 3.5 /CMM (1.8-8.9); PLATELET COUNT (AUTO) 142 /CMM (150-450); RDW COEFFICIENT OF VARIATION 25.9 (11.5-15.0); RED BLOOD CELL COUNT(AUTO) 4.37 MIL/uL (4.0-5.2); WHITE BLOOD COUNT (AUTO) 5.8 K/uL (4.3-11.0)
[2017-08-19 07:34] LABS: ALANINE AMINOTRANSFERASE 37 U/L (12-78); ALBUMIN 2.7 g/dL (3.4-5.0); ALKALINE PHOSPHATASE 49 U/L (46-116); ASPARTATE AMINOTRANSFERASE 31 U/L (15-37); BILIRUBIN,TOTAL 0.5 mg/dL (0.2-1.0); CARBON DIOXIDE 34 mmol/L (21-32); CHLORIDE 104 mmol/L (98-107); CREATININE 2.5 mg/dL (0.6-1.3); GLUCOSE 212 mg/dL (74-106); MAGNESIUM 2.4 mg/dL (1.8-2.4); PHOSPHORUS 4.1 mg/dL (2.5-4.9); POTASSIUM 4.2 mmol/L (3.5-5.1); SODIUM SERUM 144 mmol/L (136-145)
[2017-08-19 07:57] LABS: UREA NITROGEN, BLOOD 85 mg/dL (7-18)
[2017-08-19 08:00] VITALS: BP 145/64
[2017-08-19] MEDS: BLOOD SUGAR DIAGNOSTIC 1 EACH STRIP VI SCH ×3 (08:00→16:50)
[2017-08-19] MEDS: INSULIN REGULAR, HUMAN 100 UNIT/ML 3 ML VIAL SQ PRN ×3 (08:06→16:55)
[2017-08-19] MEDS: predniSONE 20 MG TABLET PO SCH (08:16)
[2017-08-19] MEDS: hydrALAZINE HCL 50 MG TABLET PO SCH ×3 (08:16→17:01)
[2017-08-19] MEDS: ASPIRIN 325 MG TABLET PO SCH (08:16)
[2017-08-19] MEDS: NITROGLYCERIN 30 GM TUBE TP SCH (08:17)
[2017-08-19] MEDS: FAMOTIDINE (20 MG) 20 MG TABLET PO SCH (08:17)
[2017-08-19] MEDS: OSELTAMIVIR PHOSPHATE 75 MG CAPSULE PO SCH (08:17)
[2017-08-19] MEDS: Z GUARD REMEDY 2 OZ OINT TP SCH (08:17)
[2017-08-19] MEDS: HEPARIN SODIUM, PORCINE 5000 UNITS/1 ML VIAL SQ SCH (08:19)
[2017-08-19] MEDS: MUPIROCIN OINT 2% 22 GM TUBE SCH (09:02)
[2017-08-19 09:17] LABS: ABG BASE EXCESS 5.9 mmol/L; ABG OXYGEN SATURATION 91.9 % (92.0-98.5); ABG PCO2 47.7 mmHg (35.0-45.0); ABG PH 7.433 (7.350-7.450); AaDO2 26.6 mmHg; COHb 0.4 % (0.5-1.5); MetHb 0.2 % (0.0-1.5); O2Hb 91.3 % (94.0-97.0); SITE, ABG Left Radial; VENT MODE, BG ROOM AIR
--- NOTE | 2017-08-19 10:39 | NUR ---
RN NOTES: PT SEEN & EXAMINED BY DR. STILL.
[2017-08-19] MEDS: MEROPENEM 1 G in IV NS 0.9% 100 ML IV SCH (12:19)
--- NOTE | 2017-08-19 14:00 | NUR ---
RN NOTES: PT SEEN & EXAMINED BY ASTER VASQUEZ. PT IS FOR DC TO HOME WITH HOME HEALTH HOWEVER, PT'S NIECE IS CONCERNED ABOUT DISCHARGING PT TO HOME, SAFETY REASONS. DC OPTIONS DISCUSSED BY MELANIE HALE WITH NIECE & PT. CM TO UPDATE RN.
[2017-08-19 16:00] VITALS: BP 137/52
--- NOTE | 2017-08-19 16:57 | NUR ---
RN NOTES: ACCUCHECK 403 MG/DL, RECHECKED 406 MG/DL. GAVE 15 UNITS INSULIN PER SLIDING SCALE. CHRISTINA STRIPPING SHOVEL OPERATOR MADE AWARE.
[2017-08-19 17:01] VITALS: BP 137/52
--- NOTE | 2017-08-19 18:38 | NUR ---
NURSE TRANSITION NOTES: PT DC'D TO [facility] PER NIECE REQUEST W/ PT'S APPROVAL. CHRISTINA RODARTE MADE AWARE. DC INSTRUCTIONS EXPLAINED TO THE PT W/ NIECE AT BEDSIDE. DC DOCUMENTS PROVIDED TO THE EMT. SKIN PHOTOS TAKEN AND PLACED IN CHART. PT TOLERATED ROOM AIR THE WHOLE SHIFT W/O SOB, SATING AT 96%. NATALEE MIDLINE, SL, FLUSHED, KEPT PATENT & INTACT W/ BLOOD RETURN - PER PT, SHE WANTED TO KEEP IT FOR NOW IN CASE IT WILL BE USE FOR FUTURE IV MEDS AND BLOOD DRAW. REPORT GIVEN TO IRINEO ENCARNACION. PT LEFT FACILITY IN STABLE CONDITION VIA GURNEY ACCOMPANIED BY AMBULANZ EMT. NO CONCERNS IDENTIFIED AT THIS TIME.
== END 2017-08-19 18:49 | DRG 280 ==
LOC: ER 11:23 → ICU 14:09 → TELE-TD 08-17 18:30 → TELE1 08-18 02:56 → MEDSG1 08-19 11:21
PROVIDERS: ADMIT Nurse Practitioner Acute Care; ATTEND Nurse Practitioner Acute Care
PROC: 05H633Z Insertion of Infusion Device into Left Subclavian Vein, Percutaneous Approach (ICD-10-PCS; principal; 2017-08-14)
PROC: B547ZZA Ultrasonography of Left Subclavian Vein, Guidance (ICD-10-PCS; 2017-08-14)
DX: I21.4 Non-ST elevation (NSTEMI) myocardial infarction (principal); J96.01 Acute respiratory failure with hypoxia; N17.0 Acute kidney failure with tubular necrosis; J09.X1 Influenza due to identified novel influenza A virus with pneumonia; I50.33 Acute on chronic diastolic (congestive) heart failure; E44.0 Moderate protein-calorie malnutrition; J15.9 Unspecified bacterial pneumonia; E87.0 Hyperosmolality and hypernatremia; N39.0 Urinary tract infection, site not specified; I11.0 Hypertensive heart disease with heart failure; E11.9 Type 2 diabetes mellitus without complications; B96.89 Other specified bacterial agents as the cause of diseases classified elsewhere; L12.0 Bullous pemphigoid; E66.2 Morbid (severe) obesity with alveolar hypoventilation; I42.9 Cardiomyopathy, unspecified; Z79.4 Long term (current) use of insulin; Z79.899 Other long term (current) drug therapy; E78.5 Hyperlipidemia, unspecified; I70.0 Atherosclerosis of aorta; K21.9 Gastro-esophageal reflux disease without esophagitis; Z90.710 Acquired absence of both cervix and uterus; Z68.36 Body mass index [BMI] 36.0-36.9, adult; I35.0 Nonrheumatic aortic (valve) stenosis; N28.1 Cyst of kidney, acquired; Z22.322 Carrier or suspected carrier of Methicillin resistant Staphylococcus aureus; E87.70 Fluid overload, unspecified
CPT/HCPCS: 36415; 36569; 36600; 71010-TC; 76770-TC; 80048-TC; 80053-TC; 80061-TC; 80076-TC; 81000-TC; 82803-TC; 82962-TC; 83605-TC; 83735-TC; 83880; 84100-TC; 84443-TC; 84484-TC; 85025-TC; 85730-TC; 87040-TC; 87081-TC; 87086-TC; 87186-TC; 87400; 93307-TC; 97116-TC; 97530-TC; A4606; J1644; J1815; J1940; J2185; J2543; J7030; J7060; Z7610

== ENCOUNTER 2017-10-09 20:49 | Inpatient (IN) | payer MEDICARE, BC ==
[~2017-10-09] VITALS: Ht 162.6 cm; Wt 81.6 kg
[~2017-10-09 20:49] MED LIST: BLOO-668 IN; CLON0.1T PO; EZET10TA14 PO; FURO-144 PO; HYDR-4075 PO; INSU10VI4 SQ; LINA5TAB PO; METO25TA3 PO; PANT40TA2 PO; PRED1TAB PO; SIMV40TA5 PO
--- NOTE | 2017-10-09 21:16 | NUR ---
PT TO ER BED 5. PT BIB SELF C/O "BLOOD IN STOOL SINCE THIS MORNING". PT PLACED IN GOWN AND ON TOOL MAINTENANCE WORKER. VSS/RESP EVEN UNLABORED/NAD NOTED/AFEBRILE/SKIN WARM AND DRY/DENIES N-V-D/AOX4. AWAITING MD PELAEZ.
[2017-10-09] MEDS ORDERED: FAMOTIDINE/PF INJ 40 MG in IV D5W 50 ML IV ONE (21:30)
--- NOTE | 2017-10-09 21:35 | NUR ---
18G IV TO L AC X 1 ATTEMPT USING ASEPTIC TECH, IV FLUSHES EASILY WITH NS. NO S/S INFILTRATION.
--- NOTE | 2017-10-09 21:40 | NUR ---
LAB AT BEDSIDE TO DRAW.
--- NOTE | 2017-10-09 21:50 | NUR ---
XRAY AT BEDSIDE.
--- NOTE | 2017-10-09 21:54 | NUR ---
Note roger in EDM - 10/09/17 at 2155 by SARMAD PT TO ER BED 5. PT BIB SELF C/O "BLOOD IN STOOL SINCE THIS MORNING". PT PLACED IN GOWN AND ON MARINE MACHINIST. VSS/RESP EVEN UNLABORED/NAD NOTED/AFEBRILE/SKIN WARM AND DRY/DENIES N-V-D/AOX4. AWAITING MD PELAEZ.
[2017-10-09 21:56] LABS: BASOPHILS % (AUTO) 0.3 % (0.0-2.0); EOSINOPHILS # (AUTO) 0.1 /CMM (0.0-0.7); EOSINOPHILS % (AUTO) 1.5 % (0.0-6.0); HEMATOCRIT 23 % (33-45); HEMOGLOBIN 7.7 g/dL (11.5-14.8); LYMPHOCYTES # (AUTO) 1.7 /CMM (0.8-4.8); MEAN CORPUSCULAR HEMOGLOBIN 29 PG (26.0-33.0); MEAN CORPUSCULAR HGB CONC 34 g/dl (31.0-36.0); MEAN CORPUSCULAR VOLUME 86 fL (82-100); MONOCYTES # (AUTO) 0.7 /CMM (0.1-1.30); MONOCYTES % (AUTO) 8.6 % (2.0-12.0); NEUTROPHILS # (AUTO) 5.9 /CMM (1.8-8.9); NEUTROPHILS % (AUTO) 69.6 % (43.0-81.0); PLATELET COUNT (AUTO) 190 /CMM (150-450); RDW COEFFICIENT OF VARIATION 23.7 (11.5-15.0); RED BLOOD CELL COUNT(AUTO) 2.64 MIL/uL (4.0-5.2); WHITE BLOOD COUNT (AUTO) 8.4 K/uL (4.3-11.0)
[2017-10-09] MEDS ORDERED: FAMOTIDINE/PF INJ 20 MG/2 ML VIAL IV ONE (21:59)
[2017-10-09 22:06] LABS: CALCIUM, SERUM 9.1 mg/dL (8.5-10.1); CARBON DIOXIDE 26 mmol/L (21-32); CHLORIDE 112 mmol/L (98-107); CREATININE 1.9 mg/dL (0.6-1.3); GLUCOSE 166 mg/dL (74-106); POTASSIUM 4.6 mmol/L (3.5-5.1); SODIUM SERUM 146 mmol/L (136-145); UREA NITROGEN, BLOOD 73 mg/dL (7-18)
[2017-10-09 22:10] LABS: INR 0.98 (0.87-1.13)
[2017-10-09 22:14] LABS: TROPONIN I 0.041 ng/mL (0.00-0.056)
--- NOTE | 2017-10-09 22:14 | NUR ---
DR IVY AT BEDSIDE.
[2017-10-09 22:15] LABS: ALANINE AMINOTRANSFERASE 14 U/L (12-78); ALBUMIN 2.9 g/dL (3.4-5.0); ALKALINE PHOSPHATASE 70 U/L (46-116); ASPARTATE AMINOTRANSFERASE 14 U/L (15-37); BILIRUBIN,DIRECT 0.1 mg/dL (0.0-0.2); BILIRUBIN,TOTAL 0.4 mg/dL (0.2-1.0); TOTAL PROTEIN, SERUM 6.4 g/dL (6.4-8.2)
[2017-10-09] MEDS ORDERED: CLONIDINE HCL 0.1 MG TABLET PO PRN (23:00)
--- NOTE | 2017-10-09 23:00 | NUR ---
ATTEMPTED TO CALL REPORT, NURSE WITH A PATIENT. WILL CALL BACK,
--- NOTE | 2017-10-09 23:09 | NUR ---
REPORT GIVEN TO ALYSHA ALFREDO FOR MARIA M.
--- NOTE | 2017-10-09 23:24 | NUR ---
PT TRANSPORTED TO THE [facility] 113-1 VIA STRETCHER ON PRIMER INSERTING MACHINE OPERATOR WITH RN, PER ACLS PROTOCOL.
[2017-10-09] MEDS ORDERED: ACETAMINOPHEN 325 MG TABLET PO PRN (23:30)
[2017-10-09] MEDS ORDERED: Z GUARD REMEDY 2 OZ OINT TP PRN (23:30)
[2017-10-09] MEDS ORDERED: PANTOPRAZOLE 40 MG VIAL IV ONE (23:30)
[2017-10-09] MEDS ORDERED: HYDROCODONE/APAP 5/325MG 1 EACH TABLET PO PRN (23:30)
[2017-10-09] MEDS ORDERED: BLOOD SUGAR DIAGNOSTIC 1 EACH STRIP IN ONE (23:30)
[2017-10-09] MEDS ORDERED: ONDANSETRON HCL/PF 4 MG/2 ML VIAL IVP PRN (23:30)
[2017-10-09] MEDS ORDERED: ZOLPIDEM TARTRATE 5 MG TABLET PO PRN (23:30)
[2017-10-09] MEDS ORDERED: IV NS 0.9% 1,000 ML IV PRN (23:30)
[2017-10-10] VITALS (14 sets, daily range): BP systolic 119–159; BP diastolic 37–91
--- NOTE | 2017-10-10 00:12 | NUR ---
RN NOTES CLARIFIED WITH JOSELINE, AFTER HOUR PHARMACY RE PROTONIX ONE TIME ORDER; WILL NOT ADMINISTER SINCE PEPCID WAS GIVEN IN er AND PROTONIX DAILY WILL START IN AM. PRIMARY RN, SAYDA MADE AWARE
--- NOTE | 2017-10-10 01:20 | NUR ---
TELE/RN PROTONIX 40 MG IV WAS NOT ADMINISTERED, PATIENT RECEIVED PEPCID IV INFUSION IN E.R. CHARGE NURSE MADE AWARE.
[2017-10-10 07:27] LABS: MAGNESIUM 2.3 mg/dL (1.8-2.4); PHOSPHORUS 4.3 mg/dL (2.5-4.9)
--- NOTE | 2017-10-10 07:29 | NUR ---
TELE1/RN PATIENT IS AWAKE, COMFORTABLE, NO C/O PAIN, NO DISTRESS NOTED. ALL NEEDS ATTENDED AT THIS TIME. ENDORSED.
[2017-10-10 07:30] LABS: BASOPHILS % (AUTO) 0.5 % (0.0-2.0); EOSINOPHILS # (AUTO) 0.1 /CMM (0.0-0.7); EOSINOPHILS % (AUTO) 1.6 % (0.0-6.0); HEMATOCRIT 21 % (33-45); LYMPHOCYTES # (AUTO) 1.5 /CMM (0.8-4.8); LYMPHOCYTES % (AUTO) 22.2 % (20.0-44.0); MEAN CORPUSCULAR HEMOGLOBIN 29 PG (26.0-33.0); MEAN CORPUSCULAR HGB CONC 34 g/dl (31.0-36.0); MEAN CORPUSCULAR VOLUME 86 fL (82-100); MONOCYTES # (AUTO) 0.7 /CMM (0.1-1.30); MONOCYTES % (AUTO) 10.4 % (2.0-12.0); NEUTROPHILS # (AUTO) 4.5 /CMM (1.8-8.9); NEUTROPHILS % (AUTO) 65.3 % (43.0-81.0); PLATELET COUNT (AUTO) 163 /CMM (150-450); RDW COEFFICIENT OF VARIATION 23.7 (11.5-15.0); RED BLOOD CELL COUNT(AUTO) 2.38 MIL/uL (4.0-5.2); WHITE BLOOD COUNT (AUTO) 6.8 K/uL (4.3-11.0)
[2017-10-10] MEDS ORDERED: PANTOPRAZOLE 40 MG TABLET.DR PO SCH (07:30)
[2017-10-10 07:48] LABS: HEMOGLOBIN 6.9 g/dL (11.5-14.8)
--- NOTE | 2017-10-10 08:00 | NUR ---
RN NOTES RECEIVED PATIENT IN THE BED TELE SR-78, PATIENT A/O X3/4 NO ACUTE RESPIRATORY DISTRESS AT THIS TIME, IV LINE ON LEFT AC AREA INTACT INFUSING NS AT 75 ML/HR, V/S TAKEN STABLE, SCHEDULED MEDICATION ADMINISTERED, NEEDS ATTENDED AND ANTICIPATED. PATIENT SEEN BY DR GUARDADO, CALL LIGHT WITHIN TO REACH, SAFETY PRECAUTION MONITORING ALL THE TIME.
[2017-10-10] MEDS ORDERED: BLOOD SUGAR DIAGNOSTIC 1 EACH STRIP IN SCH (09:00)
[2017-10-10] MEDS: PANTOPRAZOLE 40 MG VIAL IV SCH (09:37)
[2017-10-10] MEDS: METOPROLOL SUCCINATE 25 MG TAB.SR.24H PO SCH (09:41)
[2017-10-10] MEDS: FUROSEMIDE 40 MG TABLET PO SCH (09:41)
[2017-10-10] MEDS: EZETIMIBE 10 MG TABLET PO SCH (09:42)
[2017-10-10] MEDS: LINAGLIPTIN 5 MG TABLET PO SCH (09:42)
[2017-10-10] MEDS: hydrALAZINE HCL 10 MG TABLET PO SCH ×3 (09:42→16:59)
--- NOTE | 2017-10-10 10:00 | NUR ---
RN NOTES STOOL OCCULT BLOOD COLLECTED, CALL LAB FOR RECORDINGS LIBRARIAN.
[2017-10-10 11:12] LABS: BAND % (MANUAL) 4 % (0.0-5.0); BASOPHILS % (MANUAL) 0 % (0.0-2.0); EOSINOPHILS % (MANUAL) 0 % (0-4); LYMPHOCYTES % (MANUAL) 19 % (16-48); MONOCYTES % (MANUAL) 5 % (0-11.0); NEUTROPHILS % (MANUAL) 71 (42-76)
--- NOTE | 2017-10-10 12:30 | NUR ---
RN NOTES BS-205MG/DL, GIVEN 6 UNIT OF COVERAGE, ALSO ADMINISTERED SCHEDULED MEDICATION, PATIENT GOING TO GET A MIDLINE ORDER PUT IT, PATIENT GOING TO GET 2 UNITS OF BLOOD TRANSFUSION, CALL LIGHT WITHIN TO REACH, SAFETY PRECAUTION MAINTAINED ALL THE TIME.
[2017-10-10] MEDS: BLOOD SUGAR DIAGNOSTIC 1 EACH STRIP VI SCH ×3 (13:15→22:50)
[2017-10-10] MEDS ORDERED: DEXTROSE 50%-WATER 50 ML DISP.SYRIN IV PRN (13:30)
[2017-10-10] MEDS ORDERED: INSULIN REGULAR, HUMAN 100 UNIT/ML 3 ML VIAL SQ PRN (13:30)
[2017-10-10] MEDS ORDERED: *INSULIN REGULAR(HUMULIN R)HUM 100 UNIT/ML VIAL SQ PRN (13:30)
[2017-10-10 16:32] LABS: APPEARANCE,URINE CLEAR (CLEAR); BILIRUBIN,URINE NEGATIVE (NEGATIVE); BLOOD, URINE TRACE-INTA Ery/uL (NEGATIVE); COLOR,URINE YELLOW (YELLOW); KETONES,URINE NEGATIVE (NEGATIVE); LEUKOCYTE ESTERASE ,URINE TRACE (NEGATIVE); NITRITE, URINE NEGATIVE (NEGATIVE); PROTEIN,URINE NEGATIVE (NEGATIVE); UGLUCOSE NEGATIVE (NEGATIVE); UROBILINOGEN,URINE 0.2 EU/dL (0.2)
[2017-10-10 16:42] LABS: CREATININE, URINE 17.1 MG/DL (30.0-125.0)
[2017-10-10 16:49] LABS: BACTERIA,URINE 4+ /HPF (None Seen)
--- NOTE | 2017-10-10 17:00 | NUR ---
RN NOTES BS-76 MG/DL NO COVERAGE GIVEN , SCHEDULED MEDICATION ADMINISTERED, V/S STABLE, , PATIENT ON MIDLINE ON RIGHT UPPER ARM INTACT INFUSING NS AT 75 ML/HR, NEEDS ATTENDED AND ANTICIPATED, CALL LIGHT WITHIN TO REACH, CONTINUED MONITORING.
[2017-10-10] MEDS ORDERED: SIMVASTATIN 40 MG TABLET PO SCH (18:00)
--- NOTE | 2017-10-10 18:44 | NUR ---
RN NOTES PATIENT IN THE BED, STABLE, NO RESPIRATORY DISTRESS, V/S STABLE, NO COMPLAINING OF PAIN. PATIENT SIGHT BLOOD TRANSFUSING CONSENT FORM, CALL LIGHT WITHIN TO REACH, ENDORSED ONCOMING NURSE FOR MARIA M.
--- NOTE | 2017-10-10 19:30 | NUR ---
RN NOTE RECEIVED PATIENT IN THE BED, ALERT/ORIENTED X 4, ABLE TO COMMUNICATE HER NEEDS, RIGHT UPPER MIDLINE, LEFT AC 18 GAUGE, SKIN IS INTACT, NO S/S OF INFILTRATION NOTED, STAT ORDER OF BLOOD TRANSFUSION NOTED, NO S/S OF RESPIRATORY DISTRESS NOTED, NO PAIN OR DISCOMFORT NOTED, WILL CONTINUE TO MONITOR PATIENT
[2017-10-10 19:59] LABS: EOSINOPHIL,URINE None Seen
--- NOTE | 2017-10-10 20:13 | NUR ---
RN NOTE PATIENT IS RECEIVING BLOOD TRANSFUSION, NO REACTION NOTED, VITAL SIGNS STABLE WILL CONTINUE TO MONITOR PATIENT
--- NOTE | 2017-10-10 20:45 | NUR ---
RN NOTE NO BLOOD TRANSFUSION REACTION NOTED, TOLERATES WELL
--- NOTE | 2017-10-10 22:00 | NUR ---
RN NOTE PATIENT IS RECEIVING BLOOD TRANSFUSION, NO REACTION NOTED, VITAL SIGNS ARE STABLE, NO PAIN OR RESPIRATORY DISTRESS NOTED, WILL CONTINUE TO MONITOR PATIENT
[2017-10-11] VITALS (10 sets, daily range): BP systolic 139–184; BP diastolic 44–78
--- NOTE | 2017-10-11 00:56 | NUR ---
RN NOTES 0045 NO ADVERSE REACTION NOTED 15 MINS AFTER START OF 2ND UNIT OF PRBC. V/S STABLE AT THIS TIME
--- NOTE | 2017-10-11 01:00 | NUR ---
RN NOTE NO BLOOD TRANSFUSION REACTION NOTED, VITAL SIGNS STABLE, NO CHILLS OR FEVER, NO PAIN OR DISCOMFORT, WILL CONTINUE TO MONITOR PATIENT
--- NOTE | 2017-10-11 02:00 | NUR ---
RN NOTE NO BLOOD TRANSFUSION NOTED, AFEBRILE, NO DISTRESS, NO CHILLS, OR FEVER, WILL CONTINUE TO MONITOR PATENT
--- NOTE | 2017-10-11 03:00 | NUR ---
RN NOTE NO BLOOD TANSFUSION REACTION NOTED, AFEBRILE, NO S/S OF RESPIRATORY DISTRESS NOTED, NO PAIN OR DISCOMFORT, WILL CONTINUE TO MONITOR
--- NOTE | 2017-10-11 03:41 | NUR ---
RN NOTE BLOOD TRANSFUSION IS COMPLETED, NO REACTIONS WERE NOTED, AFEBRILE, VITAL SIGNS STABLE
--- NOTE | 2017-10-11 07:30 | NUR ---
PT RECEIVED RESTING COMFORTABLY IN BED. NO S/S OR C/O PAIN OR DISTRESS NOTED. SIDE RAILS UP X2, CALL LIGHT LEFT WITHIN REACH. WILL CONTINUE PLAN OF CARE.
[2017-10-11 07:39] LABS: BASOPHILS % (AUTO) 0.6 % (0.0-2.0); EOSINOPHILS # (AUTO) 0.1 /CMM (0.0-0.7); EOSINOPHILS % (AUTO) 1.8 % (0.0-6.0); HEMATOCRIT 27 % (33-45); HEMOGLOBIN 9.2 g/dL (11.5-14.8); LYMPHOCYTES # (AUTO) 1.7 /CMM (0.8-4.8); MEAN CORPUSCULAR HEMOGLOBIN 30 PG (26.0-33.0); MEAN CORPUSCULAR HGB CONC 34 g/dl (31.0-36.0); MEAN CORPUSCULAR VOLUME 87 fL (82-100); MONOCYTES # (AUTO) 0.7 /CMM (0.1-1.30); MONOCYTES % (AUTO) 8.9 % (2.0-12.0); NEUTROPHILS # (AUTO) 5.3 /CMM (1.8-8.9); NEUTROPHILS % (AUTO) 67.7 % (43.0-81.0); PLATELET COUNT (AUTO) 161 /CMM (150-450); RDW COEFFICIENT OF VARIATION 20.7 (11.5-15.0); RED BLOOD CELL COUNT(AUTO) 3.11 MIL/uL (4.0-5.2); WHITE BLOOD COUNT (AUTO) 7.9 K/uL (4.3-11.0)
--- NOTE | 2017-10-11 07:39 | NUR ---
RN NOTE NO ACUTE CHANGES DURING MY SHIFT, PATIENT IS ALERT/ORIENTED, AMBULATORY, RECEIVED 2 UNITS OF BLOOD ON MY SHIFT, TOLERATED WELL, RIGHT UPPER ARM MIDLINE, SKIN IS INTACT, NO S/S OF INFILTRATION, PICTURES OF SKIN WERE TAKEN AND PLACED IN THE CHART, ALL SAFETY MEASURES TAKEN, CALL LIGHT WITHIN REACH, ALL BELONGINGS WITHIN REACH, ENCOURAGED PATIENT TO USE CALL LIGHT WHEN NEED TO USE BATHROOM, SIDE RAILS UP X 2, BED IN THE LOWEST POSITION, ENDORSED REPORT TO THE AM SHIFT
[2017-10-11 07:55] LABS: ALANINE AMINOTRANSFERASE 13 U/L (12-78); ALBUMIN 2.7 g/dL (3.4-5.0); ALKALINE PHOSPHATASE 63 U/L (46-116); ASPARTATE AMINOTRANSFERASE 17 U/L (15-37); BILIRUBIN,TOTAL 0.6 mg/dL (0.2-1.0); CALCIUM, SERUM 9.1 mg/dL (8.5-10.1); CARBON DIOXIDE 25 mmol/L (21-32); CHLORIDE 113 mmol/L (98-107); CREATININE 1.7 mg/dL (0.6-1.3); GLUCOSE 121 mg/dL (74-106); PHOSPHORUS 4.6 mg/dL (2.5-4.9); POTASSIUM 3.9 mmol/L (3.5-5.1); SODIUM SERUM 146 mmol/L (136-145); TOTAL PROTEIN, SERUM 6.3 g/dL (6.4-8.2); UREA NITROGEN, BLOOD 56 mg/dL (7-18)
[2017-10-11] MEDS: FUROSEMIDE 40 MG TABLET PO SCH (08:30)
[2017-10-11] MEDS: EZETIMIBE 10 MG TABLET PO SCH (08:30)
[2017-10-11] MEDS: LINAGLIPTIN 5 MG TABLET PO SCH (08:31)
[2017-10-11] MEDS: hydrALAZINE HCL 10 MG TABLET PO SCH ×2 (08:31→12:10)
[2017-10-11] MEDS: PANTOPRAZOLE 40 MG VIAL IV SCH (08:31)
[2017-10-11] MEDS: METOPROLOL SUCCINATE 25 MG TAB.SR.24H PO SCH (08:31)
[2017-10-11] MEDS: BLOOD SUGAR DIAGNOSTIC 1 EACH STRIP VI SCH ×2 (08:32→11:33)
--- NOTE | 2017-10-11 10:58 | NUR ---
WOUND CARE CONSULT: PT REFUSED FULL SKIN ASSESSMENT AND STATES IS AMBULATORY AND CONTINENT. CURRENT AMY SCORE IS 21. PT STATES WILL GO HOME TODAY AND USE HER OWN POWDER TO KEEP HER SKIN DRY. WILL SEE PRN.
--- NOTE | 2017-10-11 12:43 | NUR ---
DISCHARGE INSTRUCTIONS GIVEN ORDERED. ENCOURAGED TO FOLLOW UP WITH PMD INSTRUCTED. ALL QUESTIONS AND CONCERNS ADDRESSED. PATIENT VERBALIZED UNDERSTANDING. MEDICATION RECONCILIATION FORM COMPLETED. COPY GIVEN TO PATIENT. IV REMOVED WITH CATHETER INTACT, PRESSURE DRESSING APPLIED. TELE UNIT RETURNED TO STATION. PATIENT TAKEN TO VEHICLE VIA WHEELCHAIR WITH ALL PERSONAL BELONGINGS, ACCOMPANIED BY STAFF AND FAMILY MEMBER. NO DISTRESS NOTED AT TIME OF DEPARTURE.
== END 2017-10-11 12:30 | disposition home or self-care (01) | DRG 377 ==
LOC: ER 20:50 → TELE1 22:42
PROVIDERS: ADMIT Internal Medicine; ATTEND Internal Medicine
PROC: 30233N1 Transfusion of Nonautologous Red Blood Cells into Peripheral Vein, Percutaneous Approach (ICD-10-PCS; principal; 2017-10-10)
PROC: 05H533Z Insertion of Infusion Device into Right Subclavian Vein, Percutaneous Approach (ICD-10-PCS; 2017-10-10)
DX: K92.2 Gastrointestinal hemorrhage, unspecified (principal); N17.0 Acute kidney failure with tubular necrosis; I50.22 Chronic systolic (congestive) heart failure; D62 Acute posthemorrhagic anemia; I13.0 Hypertensive heart and chronic kidney disease with heart failure and stage 1 through stage 4 chronic kidney disease, or unspecified chronic kidney disease; L12.0 Bullous pemphigoid; Z79.899 Other long term (current) drug therapy; E11.22 Type 2 diabetes mellitus with diabetic chronic kidney disease; E66.01 Morbid (severe) obesity due to excess calories; N18.9 Chronic kidney disease, unspecified; E78.5 Hyperlipidemia, unspecified; Z79.4 Long term (current) use of insulin; K21.9 Gastro-esophageal reflux disease without esophagitis; I25.10 Atherosclerotic heart disease of native coronary artery without angina pectoris; Z90.710 Acquired absence of both cervix and uterus; Z85.828 Personal history of other malignant neoplasm of skin; D63.8 Anemia in other chronic diseases classified elsewhere; Z68.36 Body mass index [BMI] 36.0-36.9, adult; Z86.14 Personal history of Methicillin resistant Staphylococcus aureus infection
CPT/HCPCS: 36415; 71045-TC; 80048-TC; 80053-TC; 80061-TC; 80076-TC; 81000-TC; 82272-TC; 82570-TC; 82962-TC; 83735-TC; 84100-TC; 84155-TC; 84300-TC; 84484-TC; 85025-TC; 85730-TC; 86850-TC; 86921-TC; 87081-TC; 87086-TC; A4606; C9113; J1815; J3490; J7030; J7050; J7060; P9016-BL; Z7610

== ENCOUNTER 2018-06-05 05:41 | Inpatient (IN) | payer MEDICARE, BC ==
[~2018-06-05] VITALS: Ht 165.1 cm; Wt 90.7 kg
[2018-06-05 06:31] LABS: BASOPHILS # (AUTO) 0.1 /CMM (0.0-0.2); BASOPHILS % (AUTO) 0.9 % (0.0-2.0); EOSINOPHILS % (AUTO) 3.6 % (0.0-6.0); HEMATOCRIT 38 % (33-45); HEMOGLOBIN 11.9 g/dL (11.5-14.8); LYMPHOCYTES # (AUTO) 2.1 /CMM (0.8-4.8); LYMPHOCYTES % (AUTO) 27.1 % (20.0-44.0); MEAN CORPUSCULAR HGB CONC 32 g/dl (31.0-36.0); MEAN CORPUSCULAR VOLUME 88 fL (82-100); MONOCYTES # (AUTO) 0.8 /CMM (0.1-1.30); MONOCYTES % (AUTO) 10.1 % (2.0-12.0); NEUTROPHILS # (AUTO) 4.5 /CMM (1.8-8.9); NEUTROPHILS % (AUTO) 58.3 % (43.0-81.0); PLATELET COUNT (AUTO) 215 /CMM (150-450); RDW COEFFICIENT OF VARIATION 23.4 (11.5-15.0); RED BLOOD CELL COUNT(AUTO) 4.28 MIL/uL (4.0-5.2); WHITE BLOOD COUNT (AUTO) 7.7 K/uL (4.3-11.0)
[2018-06-05 06:49] LABS: CALCIUM, SERUM 9.6 mg/dL (8.5-10.1); CARBON DIOXIDE 27 mmol/L (21-32); CHLORIDE 100 mmol/L (98-107); CREATININE 2.5 mg/dL (0.6-1.3); GLUCOSE 121 mg/dL (74-106); POTASSIUM 4.6 mmol/L (3.5-5.1); SODIUM SERUM 136 mmol/L (136-145)
[2018-06-05 06:51] LABS: UREA NITROGEN, BLOOD 88 mg/dL (7-18)
[2018-06-05] MEDS ORDERED: IV NS 0.9% 1,000 ML BAG IV ONE (07:00)
[2018-06-05] MEDS ORDERED: IV NS 0.9% 500 ML BAG IV ONE (07:00)
[2018-06-05 07:34] LABS: APPEARANCE,URINE SL CLOUDY (CLEAR); BILIRUBIN,URINE NEGATIVE (NEGATIVE); BLOOD, URINE NEGATIVE Ery/uL (NEGATIVE); COLOR,URINE YELLOW (YELLOW); KETONES,URINE NEGATIVE (NEGATIVE); LEUKOCYTE ESTERASE ,URINE 1+ (NEGATIVE); NITRITE, URINE NEGATIVE (NEGATIVE); PROTEIN,URINE NEGATIVE (NEGATIVE); UGLUCOSE NEGATIVE (NEGATIVE); UROBILINOGEN,URINE 0.2 EU/dL (0.2)
[2018-06-05] MEDS ORDERED: CEFTRIAXONE 1 G in IV D5W 50 ML IV STA (07:50)
--- NOTE | 2018-06-05 08:11 | NUR ---
[facility] PAGED, AROLDO ACUNA SUPERVISOR [employer]S.
[2018-06-05] MEDS ORDERED: LOSA25TA13 PO (08:14)
--- NOTE | 2018-06-05 08:15 | NUR ---
MD RHODES ON THE PHONE WITH AROLDO ACUNA FOR ADMISSION
[2018-06-05 08:19] LABS: BACTERIA,URINE Many /HPF (None Seen)
[2018-06-05 08:20] LABS: SQUAMOUS EPITHELIAL CELL,UR Few /HPF (None Seen)
[2018-06-05 08:21] LABS: RBC,URINE 0-2 /HPF (0-2)
[2018-06-05] MEDS ORDERED: DOCUSATE SODIUM 100 MG CAPSULE PO PRN (08:30)
[2018-06-05] MEDS ORDERED: DEXTROSE 50%-WATER 50 ML DISP.SYRIN IV PRN (08:30)
[2018-06-05] MEDS ORDERED: NITROGLYCERIN 0.4 MG/TAB BOTTLE SL PRN (08:30)
[2018-06-05] MEDS ORDERED: MAG HYDROX/AL HYDROX/SIMETH 30 ML UDC PO PRN (08:30)
[2018-06-05] MEDS ORDERED: MORPHINE SULFATE INJ 2 MG/ML DISP.SYRIN IV PRN (08:30)
[2018-06-05] MEDS ORDERED: ACETAMINOPHEN 325 MG TABLET PO PRN (08:30)
[2018-06-05] MEDS ORDERED: ONDANSETRON HCL/PF 4 MG/2 ML VIAL IVP PRN (08:30)
[2018-06-05] MEDS ORDERED: CLONIDINE HCL 0.1 MG TABLET PO PRN (08:30)
--- NOTE | 2018-06-05 08:32 | NUR ---
REPORT GIVEN TO RN, AFSATU FOR MARIA M UPON ADMISSION.
--- NOTE | 2018-06-05 08:49 | NUR ---
STUDENT RECRUITERANCILLARY SERVICES MANAGER THERAPY NOTES RECEIVED PT ER NURSE IN STABLE CONDITION. PT IS A/O X4. NO SOB OR SIGNS OF ACUTE DISTRESS NOTED. SHE DENIES ANY CHEST PAIN. IV TO LEFT WRIST NOTED TO BE PATENT AND INTACT. NO REDNESS OR SIGNS OF INFILTRATION NOTED. PT NOTED TO BE SR ON THE TELE MONITOR. BELONGINGS VERIFIED. PT ORIENTED TO ROOM, AND USE OF CALL LIGHT. BED IN LOW LOCKED POSITION, SIDE RAILS UP X2, CALL LIGHT WITHIN REACH. WILL CONTINUE TO MONITOR
[2018-06-05] MEDS ORDERED: LOSARTAN POTASSIUM 25 MG TABLET PO SCH (09:00)
[2018-06-05] MEDS ORDERED: FUROSEMIDE 40 MG/4 ML VIAL IV SCH (09:00)
[2018-06-05] MEDS: EZETIMIBE 10 MG TABLET PO SCH (09:35)
[2018-06-05] MEDS: ASPIRIN 325 MG TABLET PO SCH (09:36)
[2018-06-05] MEDS ORDERED: IV NS 0.9% 1,000 ML IV PRN (09:36)
[2018-06-05] MEDS: CARVEDILOL 3.125 MG TABLET PO SCH ×2 (10:20→21:08)
[2018-06-05] MEDS: NITROGLYCERIN 30 GM TUBE TP SCH ×2 (10:21→21:11)
[2018-06-05] MEDS: INSULIN REGULAR, HUMAN 100 UNIT/ML 3 ML VIAL SQ PRN ×3 (12:05→21:55)
[2018-06-05] MEDS: BLOOD SUGAR DIAGNOSTIC 1 EACH STRIP IN SCH ×3 (12:06→21:11)
[2018-06-05] MEDS: hydrALAZINE HCL 50 MG TABLET PO SCH ×2 (12:17→21:08)
[2018-06-05] MEDS ORDERED: hydrALAZINE HCL 10 MG TABLET PO SCH (13:00)
--- NOTE | 2018-06-05 13:49 | NUR ---
MANUFACTURING LABORER NOTES: MEDICAL RECORDS PT SIGNED CONSENT TO OBTAIN CARDIAC RECORDS FROM [facility]. FAX SENT TO [facility]. PER MEN'S BASKETBALL COACH, MEDICAL RECORDS WILL BE OPEN ON WEDNESDAY
[2018-06-05 16:00] VITALS: BP 137/69
[2018-06-05] MEDS: CEPHALEXIN MONOHYDRATE 500 MG CAPSULE PO SCH (16:54)
--- NOTE | 2018-06-05 18:29 | NUR ---
PRECISION FARMING SPECIALIST NOTES PT REMAINS STABLE. ALL NEEDS MET AND ORDERS CARRIED OUT ACCORDINGLY. SHE CONTINUES TO DENY ANY CHEST PAIN. SHE REMAINS SINUS RHYTHM ON THE TELE MONITOR. VITALS STABLE THROUGHOUT SHIFT. SAFETY MEASURES IN PLACE. WILL ENDORSE TO NIGHTSHIFT NURSE FOR MARIA M
[2018-06-05 20:00] VITALS: BP 139/78
[2018-06-05] MEDS ORDERED: SIMVASTATIN 20 MG TABLET PO SCH (22:00)
[2018-06-06] VITALS: BP 119/52
[2018-06-06 04:00] VITALS: BP 134/55
--- NOTE | 2018-06-06 06:15 | NUR ---
HEALTH CENTER ASSISTANT NOTES AWAKE & RESPONSIVE. NOT IN ANY DISTRESS. NO SOB NOTED. DENIES ANY PAIN OR DISCOMFORT AT THIS TIME. ON TELE SB @ 55 WITH IVF INFUSING WELL. MONITORED ACCORDINGLY. CALL LIGHT WITHIN REACH. BED IN LOWEST POSITION. SR UP X2 FOR SAFETY. WILL ENDORSE TO NEXT SHIFT.
[2018-06-06] MEDS: BLOOD SUGAR DIAGNOSTIC 1 EACH STRIP IN SCH (06:53)
[2018-06-06] MEDS: INSULIN REGULAR, HUMAN 100 UNIT/ML 3 ML VIAL SQ PRN (06:53)
[2018-06-06] MEDS ORDERED: PANTOPRAZOLE 40 MG TABLET.DR PO SCH (07:30)
--- NOTE | 2018-06-06 07:52 | NUR ---
NETWORK SUPPORT ENGINEER OPENING NOTE RECEIVED PATIENT IN BED. ALERT ORIENTED X4. ON ROOM AIR TOLERATING WELL. IN NO APPARENT DISTRESS OR DISCOMFORT AT THIS TIME. RESPIRATIONS EVEN AND UNLABORED. DENIES PAIN AND SOB. PATIENT IS ABLE TO COMMUNICATE NEEDS. REPORTS SHES WAITING FOR HER SISTER TO GET HERE SO SHE CAN GO HOME AGAINST MEDICAL ADVICE. RISKS AND BENEFITS EXPLAINED. PATIENT REFUSES ANY TREATMENT. REFUSED MORNING BLOOD DRAWS. PATIENT ON TELE MONITORING WITH SINUS JIM OF 54. LEFT WRIST 20G IVC SL. PATENT AND INTACT. ALL NEEDS ATTENDED. SAFETY MEASURES IN PLACE, BED IN LOW LOCKED POSITION, SIDE RAILS UP X2, CALL LIGHT WITHIN EASY REACH. WILL CONTINUE TO MONITOR.
[2018-06-06 08:00] VITALS: BP 128/68
[2018-06-06] MEDS: NITROGLYCERIN 30 GM TUBE TP SCH (09:00)
[2018-06-06] MEDS: EZETIMIBE 10 MG TABLET PO SCH (09:00)
[2018-06-06] MEDS: hydrALAZINE HCL 50 MG TABLET PO SCH (09:00)
[2018-06-06] MEDS: ASPIRIN 325 MG TABLET PO SCH (09:00)
[2018-06-06] MEDS: CEPHALEXIN MONOHYDRATE 500 MG CAPSULE PO SCH (09:00)
[2018-06-06] MEDS: CARVEDILOL 3.125 MG TABLET PO SCH (09:00)
--- NOTE | 2018-06-06 09:00 | NUR ---
MS RN NOTE PATIENT IS LEAVING THE HOSPITAL AGAINST THE ADVICE OF DR. STILL AND REPRESENTATIVES OF THE HOSPITAL ADMINISTRATION. PATIENT HAS BEEN TOLD BY THE DOCTOR ABOUT THE RISKS AND CONSEQUENCES INVOLVED IN LEAVING THE HOSPITAL AT THIS TIME, THE BENEFITS OF CONTINUED TREATMENT AND HOSPITALIZATION, AND THE ALTERNATIVES TO CONTINUED TREATMENT AND HOSPITALIZATION. PATIENT VERBALIZED UNDERSTANDING AND STATED SHE STILL WANTS TO LEAVE THE HOSPITAL. EXITCARE WAS DONE, DISCHARGE INSTRUCTIONS REGARDING ACTIVITY, DIET, FOLLOW-UP CARE, WORSENING SYMPTOMS WAS PROVIDED TO THE PATIENT, VERBALIZED UNDERSTANDING, MEDICAL RECORDS WAS PROVIDED PER PATIENT'S REQUEST. BELONGINGS LIST CHECKED AND ACCOUNTED FOR. IV ACCESS REMOVED TIP INTACT. REMOVED ID BAND UPON DEPARTURE. PATIENT AMBULATES INDEPENDENTLY. LEFT AMA ACCOMPANIED BY HER SISTER CHARLEE AT 0900.
== END 2018-06-06 10:00 | disposition left against medical advice (07) | DRG 302 ==
LOC: ER 05:42 → TELE 08:30 → MED 10:43 → TELE 15:54
PROVIDERS: ADMIT Registered Nurse; ATTEND Registered Nurse
DX: I25.119 Atherosclerotic heart disease of native coronary artery with unspecified angina pectoris (principal); N17.0 Acute kidney failure with tubular necrosis; I13.0 Hypertensive heart and chronic kidney disease with heart failure and stage 1 through stage 4 chronic kidney disease, or unspecified chronic kidney disease; N39.0 Urinary tract infection, site not specified; I50.32 Chronic diastolic (congestive) heart failure; K21.9 Gastro-esophageal reflux disease without esophagitis; E78.5 Hyperlipidemia, unspecified; E11.22 Type 2 diabetes mellitus with diabetic chronic kidney disease; N18.9 Chronic kidney disease, unspecified; Z85.828 Personal history of other malignant neoplasm of skin; Z87.891 Personal history of nicotine dependence; Z90.710 Acquired absence of both cervix and uterus; E66.9 Obesity, unspecified; Z68.33 Body mass index [BMI] 33.0-33.9, adult
CPT/HCPCS: 36415; 71045-TC; 80048-TC; 81000-TC; 82962-TC; 84484-TC; 85025-TC; 85730-TC; 87081-TC; 87086-TC; 87186-TC; 93307-TC; A4606; J0696; J1815; J1940; J7030; J7040; J7060; Z7610